=== PATIENT | female | born 1950 | race Caucasian/White ===

== ENCOUNTER → 2024-12-18 | Outpatient (CLI) | payer OTHER, MEDICAID, SELFPAY ==
--- NOTE | 2024-12-18 11:00 | XR_ITS ---
Examination: CT chest, without intravenous contrast. Sagittal and coronal 2-D reconstructions. Exam date and time: December 18, 2024 1126 hours Comparison 08/12/2024 INDICATIONS: Smoking history 60 years CTDI:vol (mGy) 11.3 DLP: (mGycm) 422 Technique: Multiple 3.0 mm axial sections of the chest to been obtained. Bone and lung density settings are obtained. Sagittal and coronal 2-D reconstructions have been obtained. Low dose protocols were performed. One or more of the following dose reduction techniques were used; automated exposure control, adjustment of the mA and/or KV according to patient size, use of iterative reconstruction technique. Findings: Thoracic aortic calcification no aneurysmal dilatation Pulmonary artery segments are not enlarged Significant calcification left anterior descending coronary artery Mild enlargement cardiac contour 2 mm pulmonary nodule right upper lobe image 112 4 mm pulmonary nodule right upper lobe image 173 3 mm pleural-based pulmonary nodule left lower lobe image 2:15 1 mm pulmonary nodule right lower lobe image 228 No pneumonia or pulmonary edema No gallstones No liver lesion Kidneys partially visualized no hydronephrosis IMPRESSION: Subcentimeter pulmonary nodules as above, with this study as baseline recommend 6 month follow-up CT chest without contrast
== END | disposition home or self-care (01) ==
LOC: CCTX 10:36
PROVIDERS: PCP Family Medicine; Referring Provider Family Medicine; Visit Provider Family Medicine
DX: R91.8 Other nonspecific abnormal finding of lung field (principal)
CPT/HCPCS: 71250

== ENCOUNTER → 2025-05-24 | Outpatient (CLI) | payer OTHER, MEDICAID, SELFPAY ==
--- NOTE | 2025-05-24 14:00 | XR_ITS ---
Examination: CT chest, without intravenous contrast. Sagittal and coronal 2-D reconstructions. Exam date and time: May 24, 2025 1337 hours INDICATIONS: Pulmonary nodules on CT chest December 18, 2024, smoking history 60 years CTDI:vol (mGy) 12.5 DLP: (mGycm) 630 Technique: Multiple 3.0 mm axial sections of the chest to been obtained. Bone and lung density settings are obtained. Sagittal and coronal 2-D reconstructions have been obtained. Low dose protocols were performed. One or more of the following dose reduction techniques were used; automated exposure control, adjustment of the mA and/or KV according to patient size, use of iterative reconstruction technique. Findings: No thoracic aortic aneurysmal dilatation Pulmonary artery segments are not enlarged Stable bilateral pulmonary nodules, no new pulmonary nodules No pneumonia or pulmonary edema No visualized liver or splenic lesion No gallstones No pancreatic or adrenal mass No hydronephrosis Prominent osteopenia IMPRESSION: Stable bilateral subcentimeter pulmonary nodules compared with December 18, 2024 No new pulmonary nodules
== END | disposition home or self-care (01) ==
PROVIDERS: Referring Provider Specialist; Visit Provider Specialist
DX: R91.8 Other nonspecific abnormal finding of lung field (principal)
CPT/HCPCS: 71250

== ENCOUNTER 2025-10-16 10:09 | Emergency (ER) | payer MEDICARE, MEDICAID, SELFPAY ==
[2025-10-16 10:32] VITALS: BP 185/97; PULSE 82; RESP 20; TEMP 36.9; O2SAT 97
--- NOTE | 2025-10-16 10:34 | XR_ITS ---
Examination: CT brain head without contrast. 2-D sagittal coronal reconstructions Date and time of exam: October 16, 2025, 1101 hours INDICATIONS: Patient fell today with injury to the head, head pain CTDI: vol (mGy): 47.4 DLP: (mGycm): 909 Technique: Multiple CT axial sections of the brain have been obtained, 5 mm slice thickness. Contrast has not been administered. 2-D sagittal, coronal reconstructions have been obtained Low dose protocols were performed. One or more of the following dose reduction techniques were used; automated exposure control, adjustment of the mA and/or KV according to patient size, use of iterative reconstruction technique. Findings: No significant ventricular enlargement. Intra-axial or extra-axial hemorrhage density is not seen. No mass effect or midline shift Basal cisterns are not remarkable. Fourth ventricle is midline. Cranial vault intact. Impression: Negative for acute hemorrhage, mass effect or midline shift
--- NOTE | 2025-10-16 10:34 | XR_ITS ---
Examination: Shoulder, left, 3 views Technique: Shoulder AP internal rotation, AP external rotation, Y view shoulder, 3 views Exam date and time : October 16, 2025, 1036 hours INDICATIONS: Injury to the shoulder today, shoulder pain. FINDINGS: No shoulder fracture or dislocation No AC joint separation IMPRESSION: No shoulder fracture or dislocation
--- NOTE | 2025-10-16 10:37 | EDNOTE_ITS ---
Upper Extremity Injury RME/HPI General Chief Complaint: Extremity Injury, Upper Stated Complaint: L ARM PAIN SP FALL Time Seen by Provider: 10/16/25 10:23 Source: patient Arrival date/time: 10/16/25 10:09 75-year-old female with no known medical history presents to the emergency room with a chief complaint of left shoulder and arm pain after a ground-level fall that occurred this morning Mode of arrival: ambulatory Limitations: no limitations Related Data Previous Rx's ?Medication ?Instructions ?Recorded cephalexin 500 mg capsule (Keflex) 500 mg PO Q8H infec tion #20 caps 01/17/18 clindamycin HCl 300 mg capsule 300 mg PO TID #20 caps 01/17/18 clindamycin HCl 300 mg capsule 300 mg PO QID #28 caps 01/25/18 diphenhydramine HCl 25 mg capsule 25 mg PO Q4H PRN itc [place] #20 caps 01/25/18 (Benadryl) hydrocodone 5 mg-acetaminophen 325 1 tab PO Q6H #10 ta bs 01/25/18 mg tablet (Monument) Allergies Allergy/AdvReac Type Severity Reaction Status Date / Time cephalexin (From Keflex) Allergy Intermediate ITCHES ALL Verified 08/12/24 14:38 OVER, RAPID HEART BEAT milk Allergy Mild Itching Verified 08/12/24 14:38 Review of Systems Review of Systems Systems Reviewed: All systems reviewed, normal except as documented Constitutional Constitutional: Reports system reviewed and no additional complaints, except as documented, Denies fatigue, Denies fever(s), Denies headache(s) and Denies weakness Eyes Eyes: Reports system reviewed and no additional complaints, except as documented, Denies blurry vision and Denies change in vision ENT Ears, Nose, Mouth, and Throat: Reports system reviewed and no additional complaints, except as documented, Denies otalgia, Denies headache(s), Denies nasal congestion, Denies throat swelling and Denies vertigo Cardiovascular Cardiovascular: Reports system reviewed and no additional complaints, except as documented, Denies chest pain, Denies dyspnea and Denies dyspnea on exertion Respiratory Respiratory: Reports system reviewed and no additional complaints, except as documented, Denies chest congestion, Denies cough, Denies dyspnea, Denies dyspnea on exertion and Denies wheezing Gastrointestinal Gastrointestinal: Reports system reviewed and no additional complaints, except as documented, Denies abdominal pain, Denies cramping, Denies nausea and Denies vomiting Genitourinary Genitourinary: Reports system reviewed and no additional complaints, except as documented Musculoskeletal Musculoskeletal: Reports system reviewed and no additional complaints, except as documented, Reports arthralgias, Denies back pain and Reports limited range of motion Integumentary/Breasts Skin/Breast: Reports system reviewed and no additional complaints, except as documented and Denies wounds Neurologic Neurologic: Reports system reviewed and no additional complaints, except as documented, Denies confusion, Denies headache(s), Denies lack of coordination, Denies vertigo and Denies weakness Psychiatric Psychiatric: Reports system reviewed and no additional complaints, except as documented, Denies anxiety, Denies confusion, Denies depression, Denies paranoia, Denies suicidal ideation and Denies tactile hallucinations Endocrine Endocrine: Reports system reviewed and no additional complaints, except as documented and Denies fatigue Hematologic/Lymphatic Hematologic/Lymphatic: Reports system reviewed and no additional complaints, except as documented and Denies lymphadenopathy Allergic/Immunologic Allergic/Immunologic: Reports system reviewed and no additional complaints, except as documented, Denies throat swelling, Denies urticaria and Denies wheezing ED Exam General Limitations: Present no limitations General appearance: Present alert and in no apparent distress Head Head exam: Present atraumatic Eye Eye exam: Present normal appearance, PERRL and EOMI ENT ENT exam: Present normal exam, normal oropharynx and mucous membranes moist Neck Neck exam: Present normal inspection, full ROM and trachea midline Chest Chest inspection: Present normal inspection and symmetric chest wall rise Respiratory Respiratory exam: Present normal lung sounds bilaterally Cardiovascular Cardiovascular exam: Present regular rate, normal rhythm and normal heart sounds Abdominal Exam Abdominal exam: Present soft and normal bowel sounds Extremities Exam Extremities exam: Present normal inspection and full ROM Expanded Upper Extremity Exam Shoulder exam: Present tenderness and tenderness over AC joint; Absent full ROM Arm exam: Present tenderness; Absent full ROM or swelling Back Exam Back exam: Present normal inspection and full ROM Neurological Exam Neurological exam: Present alert, oriented X3 and CN II-XII intact Psychiatric Psychiatric exam: Present normal affect and normal mood Skin Skin exam: Present warm, dry, intact and normal color Course Quality Measures none Orders Category Date Time Status sling [Splint / Immobilizer] STAT Care 10/16/25 11:[address] head/brain wo con Stat Exams 10/16/25 10:34 Completed XR humerus LT MIN 2V Stat Exams 10/16/25 10:38 Completed XR shoulder LT min 2V Stat Exams 10/16/25 10:34 Completed Vital Signs Vital signs: Vital Signs Temperature 98.4 F 10/16/25 10:32 Pulse Rate 82 10/16/25 10:32 Respiratory Rate 20 10/16/25 10:32 Blood Pressure 185/97 H 10/16/25 10:32 Pulse Oximetry (%) 97 10/16/25 10:32 Oxygen Delivery Method Room Air 10/16/25 10:32 Extremity Injury MDM Narrative MDM Narrative:: 75-year-old female with no known medical history presents to the emergency room with a chief complaint of left shoulder and arm pain after a ground-level fall that occurred this morning Patient is hemodynamically stable and in no apparent distress Physical examination shows tenderness and pain to the patient's left shoulder and left humeral area. Patient states she tripped while walking. Patient denies any head trauma but states she is on blood thinners. Patient is hemodynamically stable and in no apparent distress Physical examination shows tenderness to the left shoulder and left humerus with palpation. There is full range of motion. CT of the head and brain was negative for any acute findings. X-ray of the shoulder and humerus were negative for any acute fracture or dislocation Patient was discharged and educated to follow-up with primary care provider in the next 24 to 48 hours and return to the emergency room for any evidence of worsening signs or symptoms Patient data External records reviewed:: [facility] previous records Clinical information provided by:: patient Social determinants that could affect healthcare access:: none Patient has the following chronic illnesses:: No chronic illness How is presenting disease/condition affected by chronic disease/condition?: no chronic disease Evaluation data The following diagnostics were reviewed and interpreted by me:: lab results and radiology exam(s) Lab and/or radiology exams considered but not ordered:: Labs and radiology exams considered and ordered Interpretation Summary: CT of the head and brain-no acute findings X-ray of the left shoulder-no fracture or dislocation X-ray of the humerus-no fracture or dislocation Medications / Prescriptions Medications or Prescriptions considered but not ordered:: No medication given Medication administrations:: No medication given Consultations Consultation(s) initiated? (list below): No Diagnosis Upper Extremity Injury Differential Diagnosis: dislocation of shoulder and other (Shoulder sprain/shoulder fracture/) Most likely diagnosis given after review of the tests above:: Arm contusion/shoulder sprain Admission Indicated Admission indicated?: not indicated Admission Request Was there a request for admission?: No Disposition Plan Disposition Plan: Discharge Discharge Attestation Discharge Attestation: The patient and all family members were given an opportunity to ask questions and understood the discharge instructions. Discharge instructions specifically effects, indications for sooner follow up or return to the emergency department, and the expected course of current diagnosis. Patient condition: Stable Discharge Plan Plan Patient Disposition: HOME (Self Care) Discharge Disposition comment: Stable Prescriptions/Referrals Prescriptions/Med Rec: No Action cephalexin [Keflex] 500 mg capsule 500 mg PO Q8H Qty: 20 0RF clindamycin HCl 300 mg capsule 300 mg PO TID Qty: 20 0RF clindamycin HCl 300 mg capsule 300 mg PO QID Qty: 28 0RF hydrocodone-acetaminophen [[place]ument] 5-325 mg tablet 1 tab PO Q6H MDD 2 tabs Qty: 10 0RF diphenhydramine HCl [Benadryl] 25 mg capsule 25 mg PO Q4H PRN (Reason: itching) Qty: 20 0RF Referrals: Hiram Oro MD [Primary Care Provider, Family Practice] - In 1 week Problem List Clinical Impression: Shoulder sprain, Arm contusion Patient/Caregiver Discharge Instructions Education Materials: Bruises (Contusions), ED Contusion, Upper Extremity Additional Instructions: Please follow-up with your primary care provider in the next 24 to 48 hours X-rays of your left arm and shoulder were negative for any acute findings fractures or dislocations Your CT of your head and brain was negative for any acute findings For any evidence of worsening signs or symptoms return the emergency room immediately Print Language: Grenadian Stand Alone Forms: [employer] Award Info., Work/School Release, Patient Portal Info Letter
--- NOTE | 2025-10-16 10:38 | XR_ITS ---
Examination: Humerus 2 views left Technique: Humerus, AP lateral 2 views Date and time of exam: October 16, 2025, 10:36 a.m. INDICATIONS: Patient fell today with injury to the arm, arm pain FINDINGS: No shoulder fracture or dislocation Shaft of the humerus intact IMPRESSION: No acute fracture
== END 2025-10-16 12:56 | disposition home or self-care (01) ==
PROVIDERS: Emergency Provider Nurse Practitioner Family; PCP Family Medicine
DX: S43.402A Unspecified sprain of left shoulder joint, initial encounter (principal); S40.022A Contusion of left upper arm, initial encounter; S09.90XA Unspecified injury of head, initial encounter; W01.0XXA Fall on same level from slipping, tripping and stumbling without subsequent striking against object, initial encounter; Y93.01 Activity, walking, marching and hiking
CPT/HCPCS: 70450; 73030; 73060; 99282